=== PATIENT | male | born 1935 | race African-American/Black ===

== ENCOUNTER 2019-04-08 13:12 | Inpatient (IN) ==
[2019-04-08] MEDS ORDERED: ONDANSETRON 4 MG/2 ML VIAL IV PRN (16:42)
[2019-04-08] MEDS ORDERED: ACETAMINOPHEN 325 MG TABLET PO PRN (16:42)
[2019-04-08] MEDS ORDERED: MORPHINE 4 MG/1 ML VIAL IV PRN (16:49)
[2019-04-08] MEDS ORDERED: ENOXAPARIN 80 MG/0.8 ML SYRINGE SUBCUT ONE (17:30)
[2019-04-08 17:50] LABS: Basophils % 0.2 % (0.0-0.8); Hematocrit 42.6 VOL% (42.0-52.0); Hemoglobin 14.7 GM/DL (14.0-18.0); Immature Granulocytes % 1.6 %; Immature Granulocytes Absolute 0.22 #; Lymphocytes # 1.2 10*3/uL (1.4-4.0); Lymphocytes % 8.6 % (21.2-54.2); Mean Corpuscular HGB Conc 34.5 GM/DL (32-36); Mean Corpuscular Volume 92.4 FL (87-102); Mean Platelet Volume 9.6 FL (9.6-12.0); Monocytes % 5.4 % (1.7-12.7); Neutrophils % 84.2 % (38.7-73.9); Platelet Count 171 T/CUMM (130-400); Red Blood Count 4.61 MC/CUMM (3.8-5.5)
[2019-04-08 18:01] LABS: PT Patient Result 10.7 SECS (9.6-12.2); Partial Thromboplastin Time 22.1 SECS (20.8-36.0)
[2019-04-08 18:07] LABS: Albumin 2.6 G/DL (3.4-5.0); Bilirubin,Total 0.6 MG/DL (0.2-1.0); Calcium 7.8 MG/DL (8.5-10.1)
[2019-04-09] MEDS: MORPHINE ER 15 MG TABLET PO SCH ×2 (05:09→17:45)
[2019-04-09 05:38] LABS: Basophils % 0.2 % (0.0-0.8); Eosinophils % 0.2 % (0.00-10.9); Hematocrit 37.9 VOL% (42.0-52.0); Immature Granulocytes % 1.9 %; Immature Granulocytes Absolute 0.25 #; Lymphocytes # 1.7 10*3/uL (1.4-4.0); Lymphocytes % 13.4 % (21.2-54.2); Mean Corpuscular HGB Conc 34.3 GM/DL (32-36); Mean Corpuscular Volume 92.7 FL (87-102); Mean Platelet Volume 9.9 FL (9.6-12.0); Monocytes % 7.4 % (1.7-12.7); NRBC # 0.15 10*3/uL; Neutrophils % 76.9 % (38.7-73.9); Platelet Count 155 T/CUMM (130-400); Red Blood Count 4.09 MC/CUMM (3.8-5.5); Red Cell Distribution Width 16.2 % (9.3-17.3); White Blood Count 12.9 T/CUMM (4-12)
[2019-04-09 05:49] LABS: Calcium 7.4 MG/DL (8.5-10.1); Osmolality,Calculated 282.8 MOS/KG (273-304)
[2019-04-09] MEDS ORDERED: ENOXAPARIN 80 MG/0.8 ML SYRINGE SUBCUT SCH (09:00)
[2019-04-09] MEDS: PANTOPRAZOLE 40 MG TABLET PO SCH (09:32)
[2019-04-09] MEDS ORDERED: HYDROmorphone 2 MG/1 ML VIAL IV PRN (10:31)
[2019-04-09] MEDS: MORPHINE 4 MG/1 ML VIAL IV PRN ×2 (14:41→20:26)
[2019-04-09] MEDS: APIXABAN 5 MG TABLET PO SCH (20:31)
[2019-04-10] MEDS: MORPHINE 4 MG/1 ML VIAL IV PRN ×3 (00:38→15:54)
[2019-04-10] MEDS: MORPHINE ER 15 MG TABLET PO SCH (05:13)
[2019-04-10] MEDS ORDERED: NALOXONE 0.4 MG/ML VIAL IV ONE (09:50)
[2019-04-10] MEDS ORDERED: NALOXONE 0.4 MG/ML VIAL ONE (09:53)
[2019-04-10] MEDS ORDERED: SODIUM CHLORIDE 0.9% 1,000 ML IV ONE (10:00)
[2019-04-10] MEDS: cefTRIAXone 2,000 MG in SYRINGE 1 EACH IV SCH (11:15)
[2019-04-10] MEDS: SODIUM CHLORIDE 0.9% 1,000 ML IV SCH ×2 (11:15→19:15)
[2019-04-10 12:03] LABS: Apearance,Urine CLOUDY (Clear); Bacteria,Urine Many /HPF (Few); Bilirubin,Urine Negative (Negative); Blood, Urine Moderate mg/dL (Negative); Glucose,Urine (UA) Negative (Negative); Ketones,Urine Negative (Negative); Mucus,Urine Moderate /LPF (Occasional); Nitrite,Urine Negative (Negative); Protein,Urine 30 MG/DL; RBC,Urine 5 /HPF (0-4); Urine Color Amber (Yellow); WBC,Urine 120 /HPF (0-6)
[2019-04-10] MEDS: APIXABAN 5 MG TABLET PO SCH ×2 (13:11→20:57)
[2019-04-10] MEDS: PANTOPRAZOLE 40 MG TABLET PO SCH (13:11)
[2019-04-10] MEDS ORDERED: HALOPERIDOL 5 MG/ML AMP IV ONE (17:05)
[2019-04-10] MEDS: LACTULOSE 20 GM/30 ML UDCUP PO SCH (22:10)
[2019-04-11] MEDS: HALOPERIDOL 5 MG/ML AMP IV PRN (01:30)
[2019-04-11] MEDS: SODIUM CHLORIDE 0.9% 1,000 ML IV SCH ×4 (03:35→17:47)
[2019-04-11 06:06] LABS: Calcium 6.7 MG/DL (8.5-10.1); Osmolality,Calculated 314.7 MOS/KG (273-304)
[2019-04-11 06:31] LABS: Basophils % 0.1 % (0.0-0.8); Hematocrit 22.8 VOL% (42.0-52.0); Hemoglobin 7.6 GM/DL (14.0-18.0); Immature Granulocytes % 1.2 %; Immature Granulocytes Absolute 0.18 #; Lymphocytes # 1.4 10*3/uL (1.4-4.0); Lymphocytes % 9.3 % (21.2-54.2); Mean Corpuscular HGB Conc 33.3 GM/DL (32-36); Mean Corpuscular Volume 98.3 FL (87-102); Mean Platelet Volume 10.5 FL (9.6-12.0); Monocytes % 5.4 % (1.7-12.7); NRBC # 0.67 10*3/uL; Red Blood Count 2.32 MC/CUMM (3.8-5.5); Red Cell Distribution Width 17.5 % (9.3-17.3)
[2019-04-11 06:33] LABS: Platelet Count 117 T/CUMM (130-400)
[2019-04-11 06:47] LABS: Lymphocytes 4 % (20-55); Nucleated Red Blood Cells 8 (0-5); Platelet Estimate Decreased; Polychromasia Few; Segmented Neutrophils 95 % (50-85); Total Cells Counted 100
[2019-04-11] MEDS: BICALUTAMIDE 50 MG PO SCH ×2 (07:26→09:50)
[2019-04-11] MEDS ORDERED: MORPHINE 4 MG/1 ML VIAL IV ONE (09:33)
[2019-04-11] MEDS: LACTULOSE 20 GM/30 ML UDCUP PO SCH ×2 (09:51→20:18)
[2019-04-11] MEDS: APIXABAN 5 MG TABLET PO SCH (09:51)
[2019-04-11] MEDS: PANTOPRAZOLE 40 MG TABLET PO SCH ×2 (09:51→20:18)
[2019-04-11] MEDS ORDERED: SODIUM CHLORIDE 0.9% 1,000 ML IV PRN (10:06)
[2019-04-11] MEDS ORDERED: diphenhydrAMINE 50 MG/1 ML VIAL IV ONE (10:10)
[2019-04-11] MEDS: cefTRIAXone 2,000 MG in SYRINGE 1 EACH IV SCH (10:10)
[2019-04-11] MEDS ORDERED: SODIUM CHLORIDE 0.9% 250 ML IV ONE (10:11)
[2019-04-11 13:54] LABS: Hematocrit 20.2 VOL% (42.0-52.0); Hemoglobin 6.5 GM/DL (14.0-18.0)
[2019-04-11] MEDS: fentaNYL 25 MCG/HR PATCH TRANSDERM SCH (15:23)
[2019-04-11] MEDS: MORPHINE 4 MG/1 ML VIAL IV PRN ×3 (15:46→23:15)
[2019-04-11] MEDS: DEXAMETHASONE 4 MG PO SCH (20:19)
[2019-04-12] MEDS: HALOPERIDOL 5 MG/ML AMP IV PRN (00:49)
[2019-04-12] MEDS: DEXAMETHASONE 4 MG PO SCH ×4 (02:39→23:56)
[2019-04-12] MEDS: SODIUM CHLORIDE 0.9% 1,000 ML IV SCH ×2 (04:41→09:32)
[2019-04-12 05:59] LABS: Basophils % 0.2 % (0.0-0.8); Hematocrit 30.4 VOL% (42.0-52.0); Immature Granulocytes % 2.2 %; Immature Granulocytes Absolute 0.36 #; Lymphocytes # 0.9 10*3/uL (1.4-4.0); Lymphocytes % 5.6 % (21.2-54.2); Mean Corpuscular HGB Conc 32.9 GM/DL (32-36); Mean Corpuscular Volume 92.7 FL (87-102); Mean Platelet Volume 10.9 FL (9.6-12.0); Monocytes % 7.1 % (1.7-12.7); Neutrophils % 84.9 % (38.7-73.9); Platelet Count 102 T/CUMM (130-400); Red Blood Count 3.28 MC/CUMM (3.8-5.5); Red Cell Distribution Width 17.1 % (9.3-17.3); White Blood Count 16.5 T/CUMM (4-12)
[2019-04-12 06:11] LABS: Calcium 6.6 MG/DL (8.5-10.1); Osmolality,Calculated 318.3 MOS/KG (273-304)
[2019-04-12 06:54] LABS: Band Neutrophils 4 % (0-10); Lymphocytes 6 % (20-55); Metamyelocytes 2 %; Nucleated Red Blood Cells 31 (0-5); Platelet Estimate Decreased; Segmented Neutrophils 83 % (50-85); Total Cells Counted 100
[2019-04-12 06:55] LABS: Acanthocytes Few; Anisocytosis Slight; Macrocytosis Slight; Ovalocytes Few
[2019-04-12] MEDS: BICALUTAMIDE 50 MG PO SCH (08:52)
[2019-04-12] MEDS: PANTOPRAZOLE 40 MG TABLET PO SCH (08:52)
[2019-04-12] MEDS: LACTULOSE 20 GM/30 ML UDCUP PO SCH ×2 (08:52→23:56)
[2019-04-12] MEDS: cefTRIAXone 2,000 MG in SYRINGE 1 EACH IV SCH (09:32)
[2019-04-12] MEDS: PANTOPRAZOLE 40 MG VIAL IV SCH ×2 (10:55→23:56)
[2019-04-12] MEDS: DEXTROSE 5% 1,000 ML IV SCH ×2 (10:55→23:57)
[2019-04-12] MEDS: hydrALAZINE 20 MG/1 ML VIAL IV SCH ×3 (10:55→23:57)
[2019-04-12 15:17] LABS: Hematocrit 30.4 VOL% (42.0-52.0); Hemoglobin 9.8 GM/DL (14.0-18.0)
[2019-04-13] MEDS: DEXAMETHASONE 4 MG PO SCH ×2 (03:36→09:00)
[2019-04-13] MEDS: hydrALAZINE 20 MG/1 ML VIAL IV SCH ×3 (03:37→16:00)
[2019-04-13 08:19] LABS: Basophils % 0.2 % (0.0-0.8); Eosinophils % 0.1 % (0.00-10.9); Hematocrit 28.4 VOL% (42.0-52.0); Hemoglobin 9.4 GM/DL (14.0-18.0); Immature Granulocytes % 2.8 %; Immature Granulocytes Absolute 0.34 #; Lymphocytes % 7.7 % (21.2-54.2); Mean Corpuscular HGB Conc 33.1 GM/DL (32-36); Mean Corpuscular Volume 91.6 FL (87-102); Mean Platelet Volume 11.5 FL (9.6-12.0); Monocytes % 5.7 % (1.7-12.7); NRBC # 5.88 10*3/uL; Neutrophils % 83.5 % (38.7-73.9); Platelet Count 106 T/CUMM (130-400); Red Cell Distribution Width 20.5 % (9.3-17.3); White Blood Count 12.3 T/CUMM (4-12)
[2019-04-13] MEDS ORDERED: MIDAZOLAM 2 MG/2 ML VIAL ONE (08:28)
[2019-04-13 08:36] LABS: Calcium 6.7 MG/DL (8.5-10.1); Osmolality,Calculated 305.3 MOS/KG (273-304)
[2019-04-13 08:42] LABS: Hypochromasia 1+; Lymphocytes 5 % (20-55); Macrocytosis Slight; Nucleated Red Blood Cells 70 (0-5); Ovalocytes Slight; Platelet Estimate Decreased; Polychromasia Slight; Segmented Neutrophils 86 % (50-85); Total Cells Counted 100
[2019-04-13] MEDS: LACTULOSE 20 GM/30 ML UDCUP PO SCH ×2 (09:00→22:00)
[2019-04-13] MEDS: BICALUTAMIDE 50 MG PO SCH (09:00)
[2019-04-13] MEDS ORDERED: LIDOCAINE 2% 5 ML VIAL ONE (10:00)
[2019-04-13] MEDS ORDERED: PROPOFOL 200 MG/20 ML VIAL IV ONE (10:00)
[2019-04-13] MEDS ORDERED: ONDANSETRON 4 MG/2 ML VIAL ONE (10:00)
[2019-04-13] MEDS ORDERED: GLYCOPYRROLATE 0.4 MG/2 ML VIAL ONE (10:00)
[2019-04-13] MEDS ORDERED: PHENYLEPHRINE 1 MG/10 ML SYRINGE IV ONE (10:00)
[2019-04-13] MEDS: DEXTROSE 5% 1,000 ML IV SCH ×2 (11:33→23:53)
[2019-04-13] MEDS: PANTOPRAZOLE 40 MG VIAL IV SCH ×2 (11:34→23:52)
[2019-04-13] MEDS: cefTRIAXone 2,000 MG in SYRINGE 1 EACH IV SCH (11:35)
[2019-04-13] MEDS: MORPHINE 4 MG/1 ML VIAL IV PRN (11:42)
[2019-04-13 15:06] LABS: Hematocrit 26.2 VOL% (42.0-52.0); Hemoglobin 8.9 GM/DL (14.0-18.0)
[2019-04-13] MEDS ORDERED: MORPHINE 4 MG/1 ML VIAL IV PRN (18:05)
[2019-04-14] MEDS: hydrALAZINE 20 MG/1 ML VIAL IV SCH ×2 (00:05→10:37)
[2019-04-14 05:01] LABS: Basophils % 0.2 % (0.0-0.8); Eosinophils % 0.2 % (0.00-10.9); Hematocrit 24.7 VOL% (42.0-52.0); Hemoglobin 8.3 GM/DL (14.0-18.0); Immature Granulocytes % 1.9 %; Immature Granulocytes Absolute 0.17 #; Lymphocytes # 0.7 10*3/uL (1.4-4.0); Lymphocytes % 7.8 % (21.2-54.2); Mean Corpuscular HGB Conc 33.6 GM/DL (32-36); Mean Corpuscular Volume 90.1 FL (87-102); Mean Platelet Volume 10.4 FL (9.6-12.0); Monocytes % 5.2 % (1.7-12.7); NRBC # 3.91 10*3/uL; Neutrophils % 84.7 % (38.7-73.9); Red Blood Count 2.74 MC/CUMM (3.8-5.5); Red Cell Distribution Width 19.6 % (9.3-17.3); White Blood Count 9.1 T/CUMM (4-12)
[2019-04-14 05:18] LABS: Calcium 6.7 MG/DL (8.5-10.1); Osmolality,Calculated 292.6 MOS/KG (273-304)
[2019-04-14 05:27] LABS: Platelet Count 90 T/CUMM (130-400)
[2019-04-14 06:10] LABS: Hypochromasia 1+; Lymphocytes 6 % (20-55); Nucleated Red Blood Cells 62 (0-5); Segmented Neutrophils 90 % (50-85); Total Cells Counted 100
[2019-04-14 06:12] LABS: Macrocytosis Slight; Platelet Estimate Decreased; Polychromasia Slight; Target Cells Few
[2019-04-14] MEDS: DEXTROSE 5% 1,000 ML IV SCH (08:22)
[2019-04-14] MEDS: DEXAMETHASONE 4 MG PO SCH ×3 (08:24→10:38)
[2019-04-14] MEDS ORDERED: POTASSIUM CHLORIDE 20 MEQ TABLET PO ONE (08:25)
[2019-04-14] MEDS: cefTRIAXone 2,000 MG in SYRINGE 1 EACH IV SCH (10:38)
[2019-04-14] MEDS: PANTOPRAZOLE 40 MG VIAL IV SCH (10:38)
[2019-04-14] MEDS: BICALUTAMIDE 50 MG PO SCH (10:39)
[2019-04-14] MEDS: fentaNYL 25 MCG/HR PATCH TRANSDERM SCH (10:48)
[2019-04-14] MEDS: LACTULOSE 20 GM/30 ML UDCUP PO SCH (10:48)
[2019-04-14 17:23] VITALS: BP 120/69
== END 2019-04-14 17:55 | disposition home health service (06) | DRG 175 ==
LOC: N.CT 13:12 → SUATTDRO 14:17 → N.4E 14:17
PROVIDERS: ADMIT Internal Medicine; ATTEND Internal Medicine